=== PATIENT | female | born 1980 | race Caucasian/White ===

== ENCOUNTER 2022-10-05 21:41 | Observation (INO) | payer MEDICAID ==
[~2022-10-05] VITALS: Ht 154 cm; Wt 70.3 kg
[2022-10-05 22:00] VITALS: BP 130/76
[2022-10-05] MEDS ORDERED: TERBUTALINE 1 MG/ML VIAL SUBQ SCH (22:35)
[2022-10-05] MEDS ORDERED: TERBUTALINE 1 MG/ML VIAL SUBQ ONE (22:37)
[2022-10-05] MEDS ORDERED: MORPHINE SULFATE 4 MG/ML SYR ONE (22:39)
[2022-10-05] MEDS ORDERED: ONDANSETRON 4 MG/2 ML VIAL ONE (22:39)
[2022-10-05] MEDS ORDERED: ONDANSETRON 4 MG/2 ML VIAL IVP PRN (22:40)
[2022-10-05] MEDS: LACTATED RINGERS 1,000 ML IV SCH (23:20)
[2022-10-06 00:10] LABS: APPEARANCE,URINE CLEAR (CLEAR); BILIRUBIN,URINE NEGATIVE (NEGATIVE); BLOOD, URINE NEGATIVE (NEGATIVE); COLOR,URINE YELLOW (YELLOW); LEUKOCYTE ESTERASE ,URINE NEGATIVE (NEGATIVE); NITRITE, URINE NEGATIVE (NEGATIVE); PH,URINE 7.5 (5.0-9.0); UGLUCOSE NEGATIVE (NEGATIVE)
[2022-10-06] MEDS ORDERED: MAG SULF 2000 MG/WATER PREMIX 100 ML IV SCH (01:15)
[2022-10-06] MEDS ORDERED: BETAMETH ACET/BETAMETH NA PH 30 MG/5 ML VIAL IM SCH (01:15)
[2022-10-06 01:36] LABS: BASOPHILS % (AUTO) 0.1 % (0.0-2.0); HEMATOCRIT 40.4 % (36-48); HEMOGLOBIN 13.4 g/dL (12.0-16.0); LYMPHOCYTES # (AUTO) 1.1 K/uL (2.5-16.5); LYMPHOCYTES % (AUTO) 5.7 % (20.5-51.1); MEAN CORPUSCULAR HEMOGLOBIN 27 pg (27-31); MEAN CORPUSCULAR HGB CONC 33 g/dL (33-37); MEAN CORPUSCULAR VOLUME 81.7 fL (80-94); MONOCYTES # (AUTO) 0.9 K/uL (0.8-1.0); MONOCYTES % (AUTO) 5.1 % (1.7-9.3); NEUTROPHILS # (AUTO) 16.6 K/uL (1.8-7.7); NEUTROPHILS % (AUTO) 89.1 % (42.2-75.2); PLATELET COUNT (AUTO) 275 K/uL (140-450); RED BLOOD CELL COUNT(AUTO) 4.95 MIL/uL (4.20-5.40); RED CELL DISTRIBUTION WIDTH 13.7 % (11.6-13.7); WHITE BLOOD COUNT (AUTO) 18.6 K/uL (4.8-10.8)
[2022-10-06 01:59] LABS: ALBUMIN 2.6 g/dL (3.4-5.0); CARBON DIOXIDE 22.9 mmol/L (21-32); CREATININE 0.6 mg/dL (0.6-1.3); TOTAL BILIRUBIN 0.6 mg/dL (0.0-1.0)
[2022-10-06 02:03] LABS: POTASSIUM 2.9 mmol/L (3.5-5.1)
[2022-10-06] MEDS: MAG SULF 20 GM/H2O PREMIX DRIP 500 ML IV PRN ×2 (02:09→12:54)
[2022-10-06] MEDS: LACTATED RINGERS 1,000 ML IV SCH ×2 (04:53→17:28)
[2022-10-06] MEDS ORDERED: POTASSIUM CHLORIDE 40 MEQ, LIDOCAINE 1% 25 MG in NACL 0.9% 250 ML IV SCH (07:30)
[2022-10-06] MEDS: MORPHINE SULFATE 4 MG/ML SYR IVP PRN ×2 (07:44→12:53)
--- NOTE | 2022-10-06 09:41 | NUR ---
PATIENT HAS BEEN SCREENED AND CATEGORIZED LOW NUTRITION RISK. PATIENT WILL BE SEEN WITHIN 7 DAYS OF ADMISSION. 10/12/[address]
[2022-10-06] MEDS ORDERED: INSULIN LISPRO SLIDING SCALE 100 UNITS/ML VIAL SUBQ PRN (15:50)
== END 2022-10-06 18:00 | disposition home or self-care (01) ==
LOC: MLD 21:41
PROVIDERS: ADMIT Obstetrics & Gynecology; ATTEND Obstetrics & Gynecology
DX: O60.03 Preterm labor without delivery, third trimester (principal); Z20.822 Contact with and (suspected) exposure to COVID-19; Z3A.28 28 weeks gestation of pregnancy
CPT/HCPCS: 36415; 76805; 80053; 81003; 82731; 82948; 85025; 87086; 87426; 96361; 96365; 96366; 96372; 96375; 96376; G0378; J0702; J1815; J2001; J2270; J2405; J3105; J3475; J3480; J7030; Q0092